=== PATIENT | male | born 1985 | race Caucasian/White ===

== ENCOUNTER 2017-08-11 18:23 | Emergency (ER) | payer OTHER ==
--- NOTE | 2017-08-11 18:48 | ER Document Report ---
ED Medical Screen (RME) - General Chief Complaint: Irregular Pulse Stated Complaint: ABNORMAL LABS ISSUE Time Seen by Provider: 08/11/17 18:40 Notes: RAPID MEDICAL EVALUATION DISCLOSURE I have seen this patient as part of a Rapid Medical Evaluation and, if applicable, placed any initially appropriate orders. The patient will be seen and fully evaluated, including a full history and physical exam, by a provider ( in Main ED or Fast Track) when a room becomes available. 31-year-old male sent here by urgent care for atrial fibrillation and heart rate in the 150s. Patient denies any symptoms. He denies chest pain shortness of breath lightheadedness palpitations. He feels completely normal at this time. He does report that he had a stomach bug over the weekend however it lasted 1 or 2 days before complete resolution. He has not had any changes in medications recently however he was prescribed a "medicine to lower my heart rate" to help with his outbursts however he has not yet even started taking the medication. He does have a history of atrial fibrillation in the past "when I used to drink alcohol" but he has cut down on his alcohol intake significantly because of the atrial fibrillation and was under the impression that it had resolved. The atrial fibrillation was discovered at an urgent care facility where he was receiving an annual physical examination. EXAM CTAB Mildly tachycardic Irregularly irregular rhythm TRAVEL OUTSIDE OF THE [place] IN LAST 30 DAYS: No - Related Data Allergies/Adverse Reactions: No Known Allergies Allergy (Verified 08/11/17 18:25) Past Medical History - Social History Chew tobacco use (# tins/day): No Frequency of alcohol use: Occasional Drug Abuse: None - Past Medical History Cardiac Medical History: Reports: Hx Atrial Fibrillation Renal/ Medical History: Denies: Hx Peritoneal Dialysis - Immunizations Hx Diphtheria, Pertussis, Tetanus Vaccination: Yes
[2017-08-11 19:17] LABS: ABSOLUTE BASOPHILS # (AUTO) 0.1 10^3/uL (0.0-0.2); ABSOLUTE EOSINOPHILS # (AUTO) 0.1 10^3/uL (0.0-0.6); ABSOLUTE LYMPHOCYTES (AUTO) 3.6 10^3/uL (0.5-4.7); ABSOLUTE MONOCYTES (AUTO) 0.9 10^3/uL (0.1-1.4); ABSOLUTE NEUT (AUTO) 4.9 10^3/uL (1.7-8.2); BASOPHILS % (AUTO) 0.5 % (0-2); EOSINOPHILS % (AUTO) 1.4 % (0-6); HEMOGLOBIN 14.5 g/dL (13.5-17.0); LYMPHOCYTES % (AUTO) 37.4 % (13-45); MEAN CORPUSCULAR HGB CONC 35.2 g/dL (32.0-36.0); MEAN CORPUSCULAR VOLUME 85 fl (80-97); MONOCYTES % (AUTO) 9.5 % (3-13); PLATELET COUNT 289 10^3/uL (150-450); RED BLOOD COUNT 4.82 10^6/uL (4.35-5.55); RED CELL DISTRIBUTION WIDTH 12.1 % (11.5-14.0); SEGMENTED NEUTROPHILS % (AUTO) 51.2 % (42-78); TOTAL CELLS COUNTED % (AUTO) 100 %; WHITE BLOOD COUNT 9.6 10^3/uL (4.0-10.5)
--- NOTE | 2017-08-11 19:36 | RADIOLOGY REPORT (SQ) ---
EXAM DESCRIPTION: CHEST 2 VIEWS COMPLETED DATE/TIME: 08/11/2017 7:23 pm REASON FOR STUDY: new a fib COMPARISON: None. EXAM PARAMETERS: NUMBER OF VIEWS: two views TECHNIQUE: Digital Frontal and Lateral radiographic views of the chest acquired. RADIATION DOSE: NA LIMITATIONS: none FINDINGS: LUNGS AND PLEURA: No opacities, masses or pneumothorax. No pleural effusion. MEDIASTINUM AND HILAR STRUCTURES: No masses or contour abnormalities. HEART AND VASCULAR STRUCTURES: Heart normal size. No evidence for failure. BONES: No acute findings. HARDWARE: None in the chest. OTHER: No other significant finding. IMPRESSION: NO ACUTE RADIOGRAPHIC FINDING IN THE CHEST. TECHNICAL DOCUMENTATION: JOB ID: [id number] [employer]- All Rights Reserved Reading location - IP/workstation name: [email or web address]
[2017-08-11 19:57] LABS: ALANINE AMINOTRANSFERASE 44 U/L (21-72); ALBUMIN 4.4 g/dL (3.5-5.0); ALKALINE PHOSPHATASE 72 U/L (38-126); ANION GAP 11 (5-19); ASPARTATE AMINO TRANSFERASE 26 U/L (17-59); BILIRUBIN,DIRECT 0.4 mg/dL (0.0-0.4); BILIRUBIN,TOTAL 0.4 mg/dL (0.2-1.3); BLOOD UREA NITROGEN 18 mg/dL (7-20); CALCIUM 9.5 mg/dL (8.4-10.2); CARBON DIOXIDE 29 mmol/L (22-30); CHLORIDE 106 mmol/L (98-107); GLUCOSE 92 mg/dL (75-110); PHOSPHORUS 4.6 mg/dL (2.5-4.5); POTASSIUM 4.7 mmol/L (3.6-5.0); SODIUM 146.3 mmol/L (137-145); TOTAL PROTEIN 7.6 g/dL (6.3-8.2)
[2017-08-11] MEDS ORDERED: NORMAL SALINE 1000 ML 1,000 ML IV ONE (20:20)
[2017-08-11] MEDS ORDERED: ALPRAZOLAM 0.5 MG TABLET PO ONE (20:21)
--- NOTE | 2017-08-11 20:24 | ER Document Report ---
ED General - General Chief Complaint: Irregular Pulse Stated Complaint: ABNORMAL LABS ISSUE Time Seen by Provider: 08/11/17 18:40 Mode of Arrival: Ambulatory Information source: Patient Notes: Chief complaint: Questionable A. fib History of complain:( obtained from----patient) 31 years old male was going through physical for overseas employment. During the time electrocardiogram was done the [facility] was reading questionable atrial fibrillation therefore he was sent over to the ED to be evaluated further. Patient has no symptoms. Denies any chest pain palpitation or diaphoresis. Onset: As above Duration: As above Severity: Mild Quality: Noncontributory Context: As above Exacerbating factor and relieving factors: Not applicable REVIEW OF SYSTEMS: CONSTITUTIONAL : Denies fever, chills, or sweats. Denies recent illness. EENT: Denies eye, ear, throat, or mouth pain or symptoms. Denies nasal or sinus congestion or discharge. Denies throat, tongue, or mouth swelling or difficulty swallowing. CARDIOVASCULAR: Denies chest pain. Denies palpitations or racing or irregular heart beat. Denies ankle edema. RESPIRATORY: Denies cough, cold, or chest congestion. Denies shortness of breath, difficulty breathing, or wheezing. GASTROINTESTINAL: Denies distention. Denies nausea, vomiting, or diarrhea. Denies blood in vomitus, stools, or per rectum. Denies black, tarry stools. Denies constipation. GENITOURINARY: Denies difficulty urinating, painful urination, burning, frequency, blood in urine, or discharge. FEMALE GENITOURINARY: Denies vaginal bleeding, heavy or abnormal periods, irregular periods. Denies vaginal discharge or odor. MUSCULOSKELETAL: Denies back or neck pain or stiffness. Denies joint pain or swelling. SKIN: Denies rash, lesions or sores. HEMATOLOGIC : Denies easy bruising or bleeding. LYMPHATIC: Denies swollen, enlarged glands. NEUROLOGICAL: Denies confusion or altered mental status. Denies passing out or loss of consciousness. Denies dizziness or lightheadedness. Denies headache. Denies weakness or paralysis or loss of use of either side. Denies problems with gait or speech. Denies sensory loss, numbness, or tingling. Denies seizures. PSYCHIATRIC: Denies anxiety or stress. Denies depression, suicidal ideation, or homicidal ideation. ALL OTHER SYSTEMS REVIEWED AND NEGATIVE. PHYSICAL EXAMINATION: GENERAL: Well-appearing, well-nourished and in no acute distress. HEAD: Atraumatic, normocephalic. EYES: Pupils equal round and reactive to light, extraocular movements intact, conjunctiva are normal. ENT: Nares patent, oropharynx clear without exudates. Moist mucous membranes. NECK: Normal range of motion, supple without lymphadenopathy LUNGS: Breath sounds clear to auscultation bilaterally and equal. No wheezes rales or rhonchi. HEART: Regular rate and rhythm without murmurs ABDOMEN: Soft, nontender, nondistended abdomen. No guarding, no rebound. No masses appreciated. Examination of genitals-deferred Musculoskeletal: Normal range of motion, no pitting or edema. No cyanosis. NEUROLOGICAL: Cranial nerves grossly intact. Normal speech, normal gait. Normal sensory, motor exams PSYCH: Normal mood, normal affect. SKIN: Warm, Dry, normal turgor, no rashes or lesions noted. Dictation was performed using [employer] voice recognition software TRAVEL OUTSIDE OF THE [place] IN LAST 30 DAYS: No - HPI Onset: Just prior to arrival - Related Data Allergies/Adverse Reactions: No Known Allergies Allergy (Verified 08/11/17 18:25) Past Medical History - Social History Smoking Status: Former Smoker Chew tobacco use (# tins/day): No Frequency of alcohol use: Occasional Drug Abuse: None Family History: Reviewed & Not Pertinent Patient has suicidal ideation: No Patient has homicidal ideation: No - Past Medical History Cardiac Medical History: Reports: Hx Atrial Fibrillation Renal/ Medical History: Denies: Hx Peritoneal Dialysis - Immunizations Hx Diphtheria, Pertussis, Tetanus Vaccination: Yes Review of Systems - Review of Systems Notes: Dictated Physical Exam - Vital signs Vitals: Resp Pulse Ox 23 H 98 08/11/17 20:16 08/11/17 20:16 - Notes Notes: Dictated Course - Re-evaluation Re-evalutation: 08/11/17 20:23 Findings were discussed with the patient. 08/12/17 00:17 Subsequent electrocardiogram was at the rate of 90 bpm at atrial fibrillation. Started on Xarelto Case was discussed with the hospitalist and currently being admitted - Vital Signs Vital signs: Temp Pulse Resp BP Pulse Ox 30 H 100/78 100 08/11/17 23:31 08/11/17 23:31 08/11/17 23:31 - Laboratory Result Diagrams: 08/11/17 19:00 08/11/17 19:00 Laboratory results interpreted by me: 08/11/17 19:00 Sodium 146.3 H Phosphorus 4.6 H - EKG Interpretation by Me Rate: Normal - At the rate of 90 bpm normal axis no acute ST elevation ST depression T-wave changes. Rhythm: A.Fib Discharge - Discharge Clinical Impression: Atrial fibrillation Qualifiers: Atrial fibrillation type: paroxysmal Qualified Code(s): I48.0 - Paroxysmal atrial fibrillation Condition: Fair Disposition: ADMITTED INPATIENT Admitting Provider: Hospitalist Unit Admitted: Telemetry Prescriptions: Metoprolol Succinate 50 mg PO DAILY #30 tab.er.24h Rivaroxaban [Xarelto 15 mg Tablet] 15 mg PO DAILY #30 tablet
[2017-08-11 20:58] LABS: URINE AMPHETAMINES SCREEN NEGATIVE; URINE BARBITURATES SCREEN NEGATIVE; URINE BENZODIAZEPINES SCREEN NEGATIVE; URINE COCAINE SCREEN NEGATIVE; URINE MARIJUANA (THC) SCREEN NEGATIVE; URINE METHADONE SCREEN NEGATIVE; URINE PHENCYCLIDINE SCREEN NEGATIVE
[2017-08-11] MEDS ORDERED: METOPROLOL SUCCINATE 50 MG TAB.SR.24H PO ONE (21:25)
[2017-08-11 23:55] VITALS: BP 100/78
[2017-08-12] MEDS ORDERED: RIVAROXABAN 15 MG TABLET PO ONE (00:16)
--- NOTE | 2017-08-12 00:19 | EKG REPORT ---
SEVERITY:- ABNORMAL ECG - SINUS TACHYCARDIA MULTIFORM VENTRICULAR PREMATURE COMPLEXES LEFT AXIS DEVIATION : Confirmed by: Naz Moses MD 12-Aug-2017 00:19:12
--- NOTE | 2017-08-12 00:19 | EKG REPORT ---
SEVERITY:- ABNORMAL ECG - ATRIAL FIBRILLATION, V-RATE 67-110 LEFT AXIS DEVIATION BORDERLINE T ABNORMALITIES, ANT-LAT LEADS BORDERLINE PROLONGED QT INTERVAL : Confirmed by: Naz Moses MD 12-Aug-2017 00:19:06
[2017-08-12] MEDS ORDERED: MAG HYDROX/AL HYDROX/SIMETH SUSP 30 ML UDCUP PO PRN (00:20)
[2017-08-12] MEDS ORDERED: ACETAMINOPHEN 325 MG TABLET PO PRN (00:20)
[2017-08-12] MEDS ORDERED: NORMAL SALINE 1000 ML 1,000 ML IV ONE (00:22)
--- NOTE | 2017-08-12 05:14 | Progress Note ---
Provider Note Provider Note: MD notified by emergency room community health education coordinator patient has left AGAINST MEDICAL ADVICE prior to being seen.
[2017-08-12] MEDS ORDERED: METOPROLOL TARTRATE 50 MG TABLET PO SCH (10:00)
[2017-08-12] MEDS ORDERED: RIVAROXABAN 15 MG TABLET PO SCH (17:00)
== END 2017-08-12 01:42 | disposition other institution (70) ==
LOC: ER 18:23 → EH 08-12 00:37 → UNDOADMIN 08-12 00:37 → ER 08-12 01:42
DX: I48.0 Paroxysmal atrial fibrillation (principal); Z87.891 Personal history of nicotine dependence; Z53.20 Procedure and treatment not carried out because of patient's decision for unspecified reasons
CPT/HCPCS: 93005; 99284; 36415; 83735; 84100; 84443; 85025; 80053; 84484; 80307; 71046; 93010; J7030

== ENCOUNTER 2017-09-23 17:59 | Observation (INO) | payer OTHER ==
--- NOTE | 2017-09-23 18:21 | ER Document Report ---
ED Medical Screen (RME) - General Chief Complaint: Laceration Stated Complaint: LACERATION/LEFT THUMB Time Seen by Provider: 09/23/17 18:12 Mode of Arrival: Wheelchair Information source: Patient, Relative TRAVEL OUTSIDE OF THE [place] IN LAST 30 DAYS: No - HPI Patient complains to provider of: L hand laceration Onset: Just prior to arrival - pt. cut L hand on a diamond grinder just [employer] -- tet- UTD. Can't move thumb - Related Data Allergies/Adverse Reactions: No Known Allergies Allergy (Verified 08/11/17 18:25) Past Medical History - Past Medical History Cardiac Medical History: Reports: Hx Atrial Fibrillation Renal/ Medical History: Denies: Hx Peritoneal Dialysis - Immunizations Hx Diphtheria, Pertussis, Tetanus Vaccination: Yes
--- NOTE | 2017-09-23 19:18 | RADIOLOGY REPORT (SQ) ---
EXAM DESCRIPTION: HAND LEFT 3 VIEWS COMPLETED DATE/TIME: 09/23/2017 6:59 pm REASON FOR STUDY: trauma COMPARISON: None. EXAM PARAMETERS: NUMBER OF VIEWS: Three views. TECHNIQUE: AP, lateral and oblique radiographic images acquired of the left hand. LIMITATIONS: None. FINDINGS: MINERALIZATION: Normal. BONES: No acute fracture or dislocation. No worrisome bone lesions. JOINTS: No effusions. SOFT TISSUES: Dorsal 1st MCP joint soft tissue laceration with multiple radiopaque punctate foreign b odies. OTHER: No other significant finding. IMPRESSION: Dorsal 1st MCP joint soft tissue laceration with multiple radiopaque punctate foreign miquel dies. No fracture identified. TECHNICAL DOCUMENTATION: JOB ID: [id number] [id number] 2010 [employer]- All Rights Reserved Reading location - IP/workstation name: [email or web address]
[2017-09-23] MEDS ORDERED: AMPICILLIN SOD/SULBACTAM 3 GM VIAL IV ONE (19:39)
--- NOTE | 2017-09-23 19:45 | ER Document Report ---
ED General - General Chief Complaint: Laceration Stated Complaint: LACERATION/LEFT THUMB Time Seen by Provider: 09/23/17 18:12 Mode of Arrival: Wheelchair Information source: Patient TRAVEL OUTSIDE OF THE [place] IN LAST 30 DAYS: No - HPI Notes: Patient is a 32-year-old male previous history of atrial fibrillation diagnosed 2 months ago presents to the emergency department with report that he was using a grinding wheel and accidentally cut the dorsal aspect of his left thumb just prior to arrival. The patient is right-hand dominant. The patient reports no numbness or paresthesia or other trauma to the hand. His tetanus is up-to- date. The patient denies any chest pain or difficulty breathing or nausea or vomiting. He reports no abdominal pain or constipation or diarrhea or dysuria. He denies any fever or chills. - Related Data Allergies/Adverse Reactions: No Known Allergies Allergy (Verified 08/11/17 18:25) Past Medical History - General Information source: Patient, Relative - Social History Smoking Status: Former Smoker Frequency of alcohol use: None Drug Abuse: None Lives with: Family Family History: Reviewed & Not Pertinent Patient has suicidal ideation: No Patient has homicidal ideation: No - Past Medical History Cardiac Medical History: Reports: Hx Atrial Fibrillation Renal/ Medical History: Denies: Hx Peritoneal Dialysis - Immunizations Hx Diphtheria, Pertussis, Tetanus Vaccination: Yes Review of Systems - Review of Systems -: Yes All other systems reviewed and negative Physical Exam - Notes Notes: PHYSICAL EXAMINATION: GENERAL: Well-appearing, well-nourished and in no acute distress. HEAD: Atraumatic, normocephalic. EYES: Pupils equal round and reactive to light, extraocular movements intact, sclera anicteric, conjunctiva are normal. ENT: Nares patent, oropharynx clear without exudates. Moist mucous membranes. NECK: Normal range of motion, supple without lymphadenopathy LUNGS: Breath sounds clear to auscultation bilaterally and equal. No wheezes rales or rhonchi. HEART: Irregular rhythm with rate of 102 without appreciable murmur gallop or rub. ABDOMEN: Soft, nontender, nondistended abdomen. No guarding, no rebound. No masses appreciated. Musculoskeletal: no pitting or edema. No cyanosis. Patient has a 4 cm laceration to the dorsal aspect of the left first metacarpophalangeal joint which extends down to the edge of the bone and there is exposed tendon with obvious extensor tendon laceration. There is very minimal particulate debris and there is evidence for burn to the edge of the tissue from the grinding wheel. No proximal erythema or adenopathy. Distally, the patient has good sensation and capillary refill. No other trauma noted to the extremity. Patient has intact flexion of the thumb through the MCP and IP joint but he has no extensor function at the IP and MCP joint of the thumb. NEUROLOGICAL: Cranial nerves grossly intact. Normal speech, normal gait. Normal sensory, motor exams PSYCH: Normal mood, normal affect. SKIN: Warm, Dry, normal turgor, no rashes or lesions noted. Course - Re-evaluation Re-evalutation: 09/23/17 23:22 Patient was given IV Unasyn and x-ray was performed which showed particulate debris versus potential foreign body versus small fracture fragments of the bone from the grinding wheel. No significant gross fracture was noted. Wound area was soaked and irrigated. Discussion was undertaken with Dr. Goodman , covering for Orthopedics, and he quickly came in to see and evaluate the patient and agreed that the patient needed surgical intervention with tendon repair after his bedside evaluation. There was concern about the patient's atrial fibrillation. He previously had been on Xarelto for this, but was taken off of Xarelto by development technician at the [facility] and was placed upon a baby aspirin. By report, the patient had a normal echocardiogram with the exception of the atrial fibrillation and the patient was instructed that he needed evaluation by voice over artist with potential cardioversion performed. Discussion was undertaken with cardiology Dr. Camarena, who saw and evaluated the patient and agreed with based upon the patient's risk factors and score, baby aspirin was indicated as the only anticoagulant at the time. He requested additional Toprol XL 100 mg tablet to be given now, as the patient will be n.p.o. after midnight. The patient normally takes Toprol-XL 100 mg daily. Lab work and other studies showed no significant abnormality. Chest x-ray was clear, and patient was otherwise medically cleared for surgery by cardiology. - Laboratory Result Diagrams: 09/23/17 20:22 09/23/17 20:22 Laboratory results interpreted by me: 09/23/17 09/23/17 20:22 20:22 WBC 12.5 H Absolute Neutrophils 9.5 H Sodium 145.5 H Glucose 113 H - EKG Interpretation by Me Additional EKG results interpreted by me: 09/23/17 19:44 EKG as interpreted by me showed atrial fibrillation with ventricular response rate of 106. There is no gross evidence for acute TX or ischemia noted. There is no other significant change from previous EKG reviewed from 08/11/17. Discharge - Discharge Clinical Impression: Tendon laceration Hand laceration involving tendon Qualifiers: Encounter type: initial encounter Laterality: left Qualified Code(s): S61.412A - Laceration without foreign body of left hand, initial encounter Atrial fibrillation Qualifiers: Atrial fibrillation type: chronic Qualified Code(s): I48.2 - Chronic atrial fibrillation Condition: Stable Disposition: ADMITTED OBSERVATION Admitting Provider: Maxine Unit Admitted: Surgical Floor
--- NOTE | 2017-09-23 20:13 | RADIOLOGY REPORT (SQ) ---
EXAM DESCRIPTION: CHEST 2 VIEWS COMPLETED DATE/TIME: 09/23/2017 7:51 pm REASON FOR STUDY: atrial fibrillation COMPARISON: 08/11/2017 EXAM PARAMETERS: NUMBER OF VIEWS: two views TECHNIQUE: Digital Frontal and Lateral radiographic views of the chest acquired. RADIATION DOSE: NA LIMITATIONS: none FINDINGS: LUNGS AND PLEURA: No acute opacities, masses or pneumothorax. No pleural effusion. MEDIASTINUM AND HILAR STRUCTURES: Stable. HEART AND VASCULAR STRUCTURES: Stable. BONES: No acute findings. HARDWARE: None in the chest. OTHER: No other significant finding. IMPRESSION: NO ACUTE RADIOGRAPHIC FINDING IN THE CHEST. TECHNICAL DOCUMENTATION: JOB ID: [id number] [place]-[id number] 2010 [employer]- All Rights Reserved Reading location - IP/workstation name: [email or web address]
[2017-09-23 20:34] LABS: ABSOLUTE LYMPHOCYTES (AUTO) 2.4 10^3/uL (0.5-4.7); ABSOLUTE MONOCYTES (AUTO) 0.6 10^3/uL (0.1-1.4); ABSOLUTE NEUT (AUTO) 9.5 10^3/uL (1.7-8.2); BASOPHILS % (AUTO) 0.3 % (0-2); EOSINOPHILS % (AUTO) 0.3 % (0-6); HEMATOCRIT 43.1 % (37.9-51.0); HEMOGLOBIN 15.1 g/dL (13.5-17.0); LYMPHOCYTES % (AUTO) 19.2 % (13-45); MEAN CORPUSCULAR HEMOGLOBIN 29.5 pg (27.0-33.4); MEAN CORPUSCULAR HGB CONC 34.9 g/dL (32.0-36.0); MEAN CORPUSCULAR VOLUME 85 fl (80-97); MONOCYTES % (AUTO) 4.6 % (3-13); PLATELET COUNT 267 10^3/uL (150-450); RED BLOOD COUNT 5.11 10^6/uL (4.35-5.55); SEGMENTED NEUTROPHILS % (AUTO) 75.6 % (42-78); TOTAL CELLS COUNTED % (AUTO) 100 %; WHITE BLOOD COUNT 12.5 10^3/uL (4.0-10.5)
[2017-09-23 20:44] LABS: ALANINE AMINOTRANSFERASE 63 U/L (21-72); ALBUMIN 4.6 g/dL (3.5-5.0); ALKALINE PHOSPHATASE 60 U/L (38-126); ANION GAP 18 (5-19); ASPARTATE AMINO TRANSFERASE 39 U/L (17-59); BILIRUBIN,DIRECT 0.3 mg/dL (0.0-0.4); BILIRUBIN,TOTAL 0.5 mg/dL (0.2-1.3); BLOOD UREA NITROGEN 19 mg/dL (7-20); CALCIUM 9.6 mg/dL (8.4-10.2); CARBON DIOXIDE 23 mmol/L (22-30); CHLORIDE 105 mmol/L (98-107); GLUCOSE 113 mg/dL (75-110); POTASSIUM 4.4 mmol/L (3.6-5.0); SODIUM 145.5 mmol/L (137-145); TOTAL PROTEIN 8.2 g/dL (6.3-8.2)
[2017-09-23] MEDS ORDERED: LIDOCAINE 1% INJ-PF (10 MG/ML) 30 ML SDV INJ ONE (21:27)
[2017-09-23] MEDS ORDERED: METOPROLOL SUCCINATE 50 MG TAB.SR.24H PO ONE (22:36)
[2017-09-23] MEDS ORDERED: ONDANSETRON HCL INJ/PF 4 MG/2 ML SDV IV PRN (22:46)
[2017-09-23] MEDS ORDERED: OXYCODONE-ACETAMINOPHEN 5-325 MG TABLET PO PRN (22:46)
--- NOTE | 2017-09-23 23:09 | PDOC CONSULTATION ---
Consultation Consult Date: 09/23/17 Attending physician:: CLAUDIA CINTRON Consult reason:: Preop cardiac evaluation History of Present Illness Admission Date/PCP: 09/23/17 22:47 Patient complains of: Thumb pain History of Present Illness: SAMANTHA GUZMÁN JR is a 32 year old male with history of atrial fibrillation currently treated with aspirin presents to emergency room after sustaining a injury to his left thumb. Patient states he was using a stopper grinder when he inadvertently made contact to the back of his left thumb. Patient immediately was brought to emergency room where he was started on tetanus and given IV antibiotics. Patient states the pain is worse with any motion. Notes some numbness on the back of the finger. Current pain 3/10. Patient describes history of atrial fibrillation. He claims he has been fully evaluated by cardiology by [facility] and does have an appointment with incident coordinator in [facility] for her heart for ablation/ cardioversion etc. Patient claims that he was previously on blood thinner but after evaluation he was just switched to an aspirin a day. He is also on metoprolol succinate 100 mg p.o. daily for rate control. Patient does describe history of loud snoring and may have underlying sleep apnea with witnessed apnea being noted by patient's . Past Medical History Cardiac Medical History: Reports: Atrial Fibrillation Social History Information Source: Patient Smoking Status: Former Smoker - Advance Directive Resuscitation Status: Full Code Surrogate healthcare decision maker:: Patient's is the surrogate decision-maker Family History Family History: Reviewed & Not Pertinent Parental Family History Reviewed: Yes Children Family History Reviewed: Yes Sibling(s) Family History Reviewed.: Yes Medication/Allergy Home Medications: Oxycodone HCl/Acetaminophen [Percocet 5-325 mg Tablet] 1 - 2 tab PO ASDIR PRN # 15 tablet 12/13/13 Metoprolol Succinate 50 mg PO DAILY #30 tab.er.24h 08/12/17 Rivaroxaban [Xarelto 15 mg Tablet] 15 mg PO DAILY #30 tablet 08/12/17 Allergies/Adverse Reactions: No Known Allergies Allergy (Verified 08/11/17 18:25) Review of Systems Review of Systems: Please see history of present illness and past medical history as wall. Constitutional: No fever or chills reported. Head : No recent chronic headaches, recent head injury. Eyes: No recent eye pain, diplopia, redness, discharge, acute visual changes. Ears: No recent chronic ear pain, acute hearing loss, ear discharge. Oral cavity: No recent ulcerations, bleeding, oral cavity discomfort. Neck: No recent acute neck pain reported. Hematologic: No recent easy bruising or bleeding. Lymphatic: No recent lymph node enlargement reported. Cardiovascular system review: See history of present illness. Respiratory system review: No hemoptysis or blood clots in the lungs reported. History of atrial fibrillation Gastrointestinal system review: Negative for any recent acute hematemesis, melena. Genitourinary system review: No recent acute or chronic hematuria, flank pain, UTI etc. reported. Skin system review: Negative for any recent abnormal bruising, no rash, no pruritus reported. Neurologic: No prior history of strokes, mini strokes, seizure disorder. Psychologic: No history of major psychosis or major depression reported. Musculoskeletal: Minor aches and pains reported. No acute joint swelling reported. Endocrine: No recent polyuria, polydipsia, recent heat or cold intolerance. Physical Exam Exam: GENERAL: well-nourished and in no acute distress. Alert and oriented x3 HEAD: Atraumatic, normocephalic. EYES: Pupils equal round and reactive to light, extraocular movements intact, sclera anicteric, conjunctiva are normal. ENT: TMs normal, nares patent, oropharynx clear without exudates. Moist mucous membranes. No oral ulcerations or bleeding gums noted NECK: supple without lymphadenopathy. Trachea is central. No cervical or axillary lymphadenopathy noted. Carotids are 2+, JVD WNL LUNGS: Respiration seems nonlabored, no significant accessory muscle action noted. Breath sounds clear to auscultation bilaterally and equal noted. No wheezes rales or rhonchi noted. No significant dullness noted on percussion. CHEST: Palpation of the chest wall shows no significant chest wall tenderness. HEART: [employer], No PSH, 1/6 RUBINA aortic area, 1/6 mascorro systolic murmur mitral area, no rubs, no gallops. ABDOMEN: Soft, no significant tenderness appreciated, normoactive bowel sounds. No guarding, no rebound. No rigidity noted . No masses appreciated. EXTREMITIES: Pedal pulses are 1-2+, no calf tenderness noted. No clubbing or cyanosis. negative pedal edema noted NEUROLOGICAL: Focused neurological exam showed no significant neurologic deficit. Normal speech, no focal weakness appreciated. PSYCH: Normal mood, normal affect. Judgment and insight within normal limits. SKIN: No significant ecchymosis, skin is noted to be warm. MUSCULOSKELETAL EXAM: No significant acute joint swelling noted. Left thumb in bandage. There is a lacerated wound underneath. Results EKG Comments: Shows atrial fibrillation with RVR, left axis deviation, probable old inferior AR but unchanged from previous EKG more than a month ago in July 2017. Impressions: Hand X-Ray 09/23/17 18:12 IMPRESSION: Dorsal 1st MCP joint soft tissue laceration with multiple radiopaque punctate foreign bodies. No fracture identified. Chest X-Ray 09/23/17 19:40 IMPRESSION: NO ACUTE RADIOGRAPHIC FINDING IN THE CHEST. Assessment & Plan - Diagnosis (1) Preoperative cardiovascular examination Is this a current diagnosis for this admission?: Yes (2) Atrial fibrillation Qualifiers: Atrial fibrillation type: chronic Qualified Code(s): I48.2 - Chronic atrial fibrillation Is this a current diagnosis for this admission?: Yes (3) Hand laceration involving tendon Qualifiers: Encounter type: initial encounter Laterality: left Qualified Code(s): S61.412A - Laceration without foreign body of left hand, initial encounter; S66.922A - Laceration of unspecified muscle, fascia and tendon at wrist and hand level, left hand, initial encounter; S66.922A - Laceration of unspecified muscle, fascia and tendon at wrist and hand level, left hand, initial encounter Is this a current diagnosis for this admission?: Yes (4) Tendon laceration Is this a current diagnosis for this admission?: Yes - Notes Notes: Preop cardiovascular examination: Patient has chronic A. fib. Rate slightly on the high side. EKG is somewhat abnormal and somewhat on the low voltage side however chest x-ray shows normal cardiac silhouette in both PA and lateral projection. No clinical CHF noted not any CHF noted on chest x-ray. Feel that patient would be an acceptable candidate to proceed with surgery without any undue increased risk. Currently not on anticoagulation except for aspirin. Have instructed the ER to administer another 100 mg of metoprolol succinate overnight so that his heart rate is well controlled for surgery tomorrow. If needed, as needed IV Lopressor can be given. It seems surgery is semi-urgent. Laceration of the thumb with involvement of the tendon. Agree that surgery is indicated. Resume aspirin when feasible from surgical standpoint. Loud snoring: Patient will benefit from sleep evaluation because of history of snoring and suspicion of underlying sleep apnea which can result in atrial fibrillation. This was explained to the patient. - Time Time Spent: 30 to 50 Minutes - CODE STATUS was discussed, patient remains full code. Surrogate decision-maker unchanged. Multiple medical problems were addressed. More than 50% of the time spent coordinating care, discussing management plans with involved caregivers. Management plans discussed with involved personnels. Medical decision making was of moderate to high complexity , patient's has multiple comorbidities. Medications reviewed and adjusted accordingly: Yes
[2017-09-23] MEDS: MORPHINE SULFATE 10 MG/ML INJ IV PRN (23:40)
[2017-09-24] MEDS ORDERED: AMPICILLIN SOD/SULBACTAM 1.5 GM VIAL IV SCH
--- NOTE | 2017-09-24 00:05 | EKG REPORT ---
SEVERITY:- ABNORMAL ECG - ATRIAL FIBRILLATION, V-RATE 85-127 LEFT AXIS DEVIATION CONSIDER ANTERIOR INFARCT : Confirmed by: Naz Moses MD 24-Sep-2017 00:04:47
[2017-09-24] MEDS: AMPICILLIN SODIUM/SULBACTAM NA 1.5 GM in NORMAL SALINE 50 ML IV SCH ×2 (03:10→10:35)
[2017-09-24] MEDS: MORPHINE SULFATE 10 MG/ML INJ IV PRN (04:06)
[2017-09-24] MEDS ORDERED: BACITRACIN INJ 50,000 UNIT VIAL ONE (07:09)
[2017-09-24] MEDS ORDERED: LIDOCAINE 1% INJ-PF (10 MG/ML) 30 ML SDV ONE (07:09)
[2017-09-24] MEDS ORDERED: LIDOCAINE 2% INJ-PF (20 MG/ML) 10 ML AMPUL ONE (07:42)
[2017-09-24] MEDS ORDERED: FENTANYL CITRATE INJ/PF 100 MCG/2 ML AMPUL ONE (07:42)
[2017-09-24] MEDS ORDERED: ACETAMINOPHEN 1,000 MG/100 ML RTUPB IV ONE (07:43)
[2017-09-24] MEDS ORDERED: MIDAZOLAM 2 MG/2 ML INJ ONE (07:43)
[2017-09-24] MEDS ORDERED: PROPOFOL INJ 200 MG/20 ML VIAL IV ONE (07:43)
[2017-09-24] MEDS ORDERED: DIPHENHYDRAMINE HCL 50 MG/ML VIAL IV PRN (08:24)
[2017-09-24] MEDS ORDERED: MEPERIDINE HCL/PF INJ 25 MG/1 ML DISP.SYRIN IV PRN (08:24)
[2017-09-24] MEDS ORDERED: FENTANYL CITRATE INJ/PF 100 MCG/2 ML AMPUL IV PRN ×3 (08:24)
[2017-09-24] MEDS ORDERED: PROMETHAZINE HCL INJ 25 MG/1 ML VIAL IV PRN ×2 (08:24)
[2017-09-24] MEDS ORDERED: ONDANSETRON HCL INJ/PF 4 MG/2 ML SDV IV PRN (08:24)
--- NOTE | 2017-09-24 09:29 | Operative Report ---
Operative Report DATE OF SURGERY: 09/24/17 PREOPERATIVE DIAGNOSIS: Laceration left thumb POSTOPERATIVE DIAGNOSIS: Zone III extensor tendon laceration left thumb with open fracture thumb metacarpal head, with foreign body contamination OPERATION: 1. Irrigation and debridement open fracture left thumb index metacarpal, MCP joint. 2. zone III extensor tendon repair. SURGEON: CLAUDIA CINTRON ANESTHESIA: LMAC COMPLICATIONS: None ESTIMATED BLOOD LOSS: Minimal PROCEDURE: Indication for above procedure: 32-year-old male who sustained a grinding injury to the dorsum of his thumb at the MP joint. Patient was seen in the emergency room where he was started on antibiotics and wound was cleansed and loosely closed. Patient required cardiology clearance once this was obtained decision was made to proceed with operative treatment in a somewhat urgent basis. Risks and benefits were explained to the patient verbalized understanding consented for the procedure. Procedure In Detail: Patient was seen and evaluated in the preoperative holding area. The LEFT upper extremity was initialized and marked. Patient receiving IV Unasyn scheduled. Patient was taken back to the operative room where transferred to the operative table and placed under MAC al anesthesia. Once they were adequately anesthetized a nonsterile tourniquet was placed on the upper extremity. A surgical team debriefing was performed ensuring all instrumentation was available, the surgical procedure was discussed with possible concerns reviewed. Digital block was performed utilizing 10 cc of 1% lidocaine without epinephrine. The upper extremity was pre-prepped with chlorhexidine and then prepped with Betadine and draped in a sterile fashion. A timeout was done identifying correct patient, procedure and extremity everyone in attendance agree with this and verbalized no concerns. The extremity was exsanguinated the tourniquet was inflated to 250 mmHg. The wound was extended proximally and distally and explored. There was gross contamination with small fragments of metal along the soft tissues, extensor tendon and within the MCP joint. Any nonviable tissue was excised and the particulate matter removed. The MP joint was copiously irrigated with normal saline flushing any remaining loose bodies. An open fracture of the index metacarpal was noted with a groove along its dorsal surface just along the transition from the metaphysis to the articular surface. This was debrided and curetted to remove any the particulate matter. There was disruption of the small sensory branches of the superficial radial nerve a large intermediate branch along the ulnar border remained intact. Any peripheral veins were coagulated with bipolar cautery. Under fluoroscopy I tested radial ulnar collateral ligament stability was adequate stability with no evidence of angulation greater than 15 and minimal gapping and no translation after stress. 1 L of saline was then utilized to complete irrigation. The extensor mechanism was then closed with a running 3-0 Ethibond Silverskiold stitch which was also reinforced with [id number] stitches. There is good stability of the extensor tendon repair with no evidence of gapping. Once again radial ulnar collateral ligament stability was tested which demonstrated no evidence of laxity on examination. Tourniquet was then deflated any peripheral veins were coagulated with bipolar cautery into the wound was dry. Additional 10 cc of 1% lidocaine without epinephrine was injected for postoperative pain control. Skin incision was closed with interrupted 3-0 nylon suture. Wound was dressed with Xeroform 4 x 4's and patient was placed in a thumb spica plaster splint maintaining full IP and MP joint flexion with the wrist at 20 of extension. Sponge counts, instrument counts, needle counts counts were correct. Patient was then awoken from anesthesia. Transferred from the operating room table to the operating room stretcher. There was no intraoperative complications patient tolerated procedure well stable to PACU. Postoperative plan: Patient will follow-up the office in 2 weeks for wound check and then be transitioned to a thumb spica cast it was then be set up for occupational therapy 6 weeks postoperatively to begin range of motion exercises.
[2017-09-24 10:49] VITALS: BP 116/76
--- NOTE | 2017-09-24 10:54 | PDOC DISCHARGE SUMMARY ---
General - Admit/Disc Date/PCP Admission Date/Primary Care Provider: 09/23/17 22:47 Discharge Date: 09/24/17 - Discharge Diagnosis (1) Hand laceration involving tendon Is this a current diagnosis for this admission?: Yes - Additional Information Resuscitation Status: Full Code Discharge Diet: As Tolerated Discharge Activity: No Lifting Over 10 Pounds, No Lifting/Push/Pulling Prescriptions: Amox Tr/Potassium Clavulanate [Augmentin 875-125 mg Tablet] 1 tab PO BID #20 tablet Oxycodone HCl/Acetaminophen [Percocet 5-325 mg Tablet] 1 tab PO Q6 #28 tab Home Medications: Metoprolol Succinate 50 mg PO DAILY #30 tab.er.24h 08/12/17 Amox Tr/Potassium Clavulanate [Augmentin 875-125 mg Tablet] 1 tab PO BID #20 tablet 09/24/17 Oxycodone HCl/Acetaminophen [Percocet 5-325 mg Tablet] 1 tab PO Q6 #28 tab 09/24 History of Present Illness History of Present Illness: SAMANTHA GUZMÁN JR is a 32 year old male with history of atrial fibrillation currently treated with aspirin presents to emergency room after sustaining a injury to his left thumb. 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 Patient immediately was brought to emergency room where he was started on tetanus and given IV antibiotics. Patient states the pain is worse with any motion. Notes some numbness on the back of the finger. Current pain 3/10. Hospital Course Hospital Course: Patient underwent left thumb irrigation and debridement with repair of extensor tendon on 09/24/17. Patient had been receiving IV antibiotics prior to surgical treatment and continues to receive antibiotics. Patient doing well postoperatively pain has been controlled. At this point patient orthopedically stable for discharge to home. Physical Exam Vital Signs: Temp Pulse Resp BP Pulse Ox 98.4 F 89 16 116/76 98 09/24/17 10:30 09/24/17 10:30 09/24/17 10:30 09/24/17 10:30 09/24/17 10:30 Intake & Output 09/23/17 09/24/17 09/25/17 06:59 06:59 06:59 Intake Total 50 2500 Output Total 1510 Balance 50 990 Weight 104.2 kg General appearance: PRESENT: no acute distress, well-developed, well-nourished Head exam: PRESENT: atraumatic, normocephalic Eye exam: PRESENT: conjunctiva pink, EOMI, PERRLA. ABSENT: scleral icterus Ear exam: PRESENT: normal external ear exam Mouth exam: PRESENT: moist, tongue midline Neck exam: PRESENT: full ROM. ABSENT: carotid bruit, JVD, lymphadenopathy, thyromegaly Cardiovascular exam: PRESENT: RRR. ABSENT: diastolic murmur, rubs, systolic murmur Pulses: PRESENT: normal dorsalis pedis pul, +2 pedal pulses bilateral Vascular exam: PRESENT: normal capillary refill GI/Abdominal exam: PRESENT: normal bowel sounds, soft. ABSENT: distended, guarding, mass, organolmegaly, rebound, tenderness Rectal exam: PRESENT: deferred Musculoskeletal exam: PRESENT: other - Left hand: Dressing clean/dry/intact no erythema or drainage. Cap refill less than 2 seconds. Neurological exam: PRESENT: alert, awake, oriented to person, oriented to place , oriented to time, oriented to situation, CN II-XII grossly intact. ABSENT: motor sensory deficit Psychiatric exam: PRESENT: appropriate affect, normal mood. ABSENT: homicidal ideation, suicidal ideation Skin exam: PRESENT: dry, intact, warm. ABSENT: cyanosis, rash Results Impressions: Hand X-Ray 09/23/17 18:12 IMPRESSION: Dorsal 1st MCP joint soft tissue laceration with multiple radiopaque punctate foreign bodies. No fracture identified. Chest X-Ray 09/23/17 19:40 IMPRESSION: NO ACUTE RADIOGRAPHIC FINDING IN THE CHEST. Qualifiers - * PATIENT BEING DISCHARGED WITH ANY OF THE FOLLOWING DIAGNOSIS: No Plan Discharge Plan: Patient has done well postoperatively. Plan is for discharge to home will continue Augmentin for bacterial prophylaxis. We will continue splint at all times. Patient to follow-up at my office in 10-14 days for recheck. Patient is to call with any questions or concerns including increasing redness, swelling , pain or temperature greater than 101.5. Patient was read above instructions, understood above instructions and is orthopedically stable for discharge to home.
--- NOTE | 2017-09-24 12:30 | RADIOLOGY REPORT (SQ) ---
EXAM DESCRIPTION: NO CHG FLUORO; FINGER LEFT COMPLETED DATE/TIME: 09/24/2017 9:38 am REASON FOR STUDY: LT THUMB TENDON REPAIR IN OR COMPARISON: None. FLUOROSCOPY TIME: 9 seconds 3 images saved to PACS. TECHNIQUE: Intra-operative images acquired during surgical procedure to evaluate progress. NUMBER OF IMAGES: 3 LIMITATIONS: None. FINDINGS: Selected images of the left thumb obtained in the operating room. IMPRESSION: IMAGE(S) OBTAINED DURING PROCEDURE. COMMENT: Quality ID [id number]: Final reports for procedures using fluoroscopy that document radiation exp osure indices, or exposure time and number of fluorographic images (if radiation exposure indices are not available) Please consult full operative report of the attending physician for description of the procedure. TECHNICAL DOCUMENTATION: JOB ID: [id number] [employer]- All Rights Reserved Reading location - IP/workstation name: [email or web address]
--- NOTE | 2017-09-24 12:30 | RADIOLOGY REPORT (SQ) ---
EXAM DESCRIPTION: NO CHG FLUORO; FINGER LEFT COMPLETED DATE/TIME: 09/24/2017 9:38 am REASON FOR STUDY: LT THUMB TENDON REPAIR IN OR COMPARISON: None. FLUOROSCOPY TIME: 9 seconds 3 images saved to PACS. TECHNIQUE: Intra-operative images acquired during surgical procedure to evaluate progress. NUMBER OF IMAGES: 3 LIMITATIONS: None. FINDINGS: Selected images of the left thumb obtained in the operating room. IMPRESSION: IMAGE(S) OBTAINED DURING PROCEDURE. COMMENT: Quality ID 145: Final reports for procedures using fluoroscopy that document radiation exp osure indices, or exposure time and number of fluorographic images (if radiation exposure indices are not available) Please consult full operative report of the attending physician for description of the procedure. TECHNICAL DOCUMENTATION: JOB ID: [id number] [employer]- All Rights Reserved Reading location - IP/workstation name: [email or web address]
--- NOTE | 2017-09-27 14:33 | Progress Note ---
Provider Note Provider Note: History and Physical Examination History of Present Illness Patient complains of: Left thumb injury History of Present Illness: SAMANTHA GUZMÁN JR is a 32 year old male with history of atrial fibrillation currently treated with aspirin presents to emergency room after sustaining a injury to his left thumb. Patient states he was using a bark grinder when he inadvertently made contact to the back of his left thumb. Patient immediately was brought to emergency room where he was started on tetanus and given IV antibiotics. Patient states the pain is worse with any motion. Notes some numbness on the back of the finger. Current pain 04/23. Past Medical History Cardiac Medical History: Reports: Atrial Fibrillation Social History Smoking Status: Former Smoker Family History Family History: Reviewed & Not Pertinent Parental Family History Reviewed: No Children Family History Reviewed: No Sibling(s) Family History Reviewed.: No Medication/Allergy Home Medications: Oxycodone HCl/Acetaminophen [Percocet 5-325 mg Tablet] 1 - 2 tab PO ASDIR PRN # 15 tablet 12/13/13 Metoprolol Succinate 50 mg PO DAILY #30 tab.er.24h 08/12/17 Rivaroxaban [Xarelto 15 mg Tablet] 15 mg PO DAILY #30 tablet 08/12/17 Allergies/Adverse Reactions: No Known Allergies Allergy (Verified 08/11/17 18:25) Review of Systems Constitutional: ABSENT: chills, fever(s), headache(s), weight gain, weight loss Eyes: ABSENT: visual disturbances Ears: ABSENT: hearing changes Cardiovascular: PRESENT: other - Atrial fibrillation. ABSENT: chest pain, dyspnea on exertion, edema, orthropnea, palpitations Respiratory: ABSENT: cough, hemoptysis Gastrointestinal: ABSENT: abdominal pain, constipation, diarrhea, hematemesis, hematochezia, nausea, vomiting Genitourinary: ABSENT: dysuria, hematuria Integumentary: ABSENT: rash, wounds Neurological: ABSENT: abnormal gait, abnormal speech, confusion, dizziness, focal weakness, syncope Psychiatric: ABSENT: anxiety, depression, homidical ideation, suicidal ideation Endocrine: ABSENT: cold intolerance, heat intolerance, menstrual abnormalities, polydipsia, polyuria Hematologic/Lymphatic: ABSENT: easy bleeding, easy bruising, lymphadenopathy Physical Exam General appearance: PRESENT: no acute distress, well-developed, well-nourished Head exam: PRESENT: atraumatic, normocephalic Eye exam: PRESENT: conjunctiva pink, EOMI, PERRLA. ABSENT: scleral icterus Ear exam: PRESENT: normal external ear exam Mouth exam: PRESENT: moist, tongue midline Neck exam: PRESENT: full ROM. ABSENT: carotid bruit, JVD, lymphadenopathy, thyromegaly Respiratory exam: PRESENT: unlabored Cardiovascular exam: PRESENT: irregular rhythm. ABSENT: diastolic murmur, rubs , systolic murmur Pulses: PRESENT: normal dorsalis pedis pul, +2 pedal pulses bilateral Vascular exam: PRESENT: normal capillary refill GI/Abdominal exam: PRESENT: normal bowel sounds, soft. ABSENT: distended, guarding, mass, organolmegaly, rebound, tenderness Rectal exam: PRESENT: deferred Musculoskeletal exam: PRESENT: other - Left thumb: 5 cm laceration with defect within the extensor tendon along the dorsum of the MCP joint. No active bleeding. Appropriate tenderness palpation. Intact flexion but lacks extension of the MP and IP joint. Hypoesthesia on the distal tip. Cap refill less than 2 seconds. Neurological exam: PRESENT: alert, awake, oriented to person, oriented to place , oriented to time, oriented to situation, CN II-XII grossly intact. ABSENT: motor sensory deficit Psychiatric exam: PRESENT: appropriate affect, normal mood. ABSENT: homicidal ideation, suicidal ideation Skin exam: PRESENT: dry, intact, warm. ABSENT: cyanosis, rash Results Laboratory Results: 09/23/17 20:22 09/23/17 20:22 09/23/17 09/23/17 09/23/17 20:22 20:22 20:22 WBC 12.5 H RBC 5.11 Hgb 15.1 Hct 43.1 MCV 85 MCH 29.5 MCHC 34.9 RDW 12.0 Plt Count 267 Seg Neutrophils % 75.6 Lymphocytes % 19.2 Monocytes % 4.6 Eosinophils % 0.3 Basophils % 0.3 Absolute Neutrophils 9.5 H Absolute Lymphocytes 2.4 Absolute Monocytes 0.6 Absolute Eosinophils 0.0 Absolute Basophils 0.0 Sodium 145.5 H Potassium 4.4 Chloride 105 Carbon Dioxide 23 Anion Gap 18 BUN 19 Creatinine 1.08 Est GFR ( Amer) > 60 Est GFR (Non-Af Amer) > 60 Glucose 113 H Calcium 9.6 Magnesium 2.2 Total Bilirubin 0.5 AST 39 ALT 63 Alkaline Phosphatase 60 Total Protein 8.2 Albumin 4.6 TSH 0.92 Impressions: Hand X-Ray 09/23/17 18:12 IMPRESSION: Dorsal 1st MCP joint soft tissue laceration with multiple radiopaque punctate foreign bodies. No fracture identified. Chest X-Ray 09/23/17 19:40 IMPRESSION: NO ACUTE RADIOGRAPHIC FINDING IN THE CHEST. Status: Image reviewed by me - I have reviewed patient's radiographs of the left thumb with demonstrate soft tissue defect dorsally with fragmentation within the dorsal soft tissues. No definitive fracture noted Assessment & Plan - Diagnosis (1) Hand laceration involving tendon Qualifiers: Encounter type: initial encounter Laterality: left Qualified Code(s): S61.412A - Laceration without foreign body of left hand, initial encounter; S66.922A - Laceration of unspecified muscle, fascia and tendon at wrist and hand level, left hand, initial encounter; S66.922A - Laceration of unspecified muscle, fascia and tendon at wrist and hand level, left hand, initial encounter Is this a current diagnosis for this admission?: Yes Plan: Given the involvement of the patient's underlying extensor tendon and bone I would treat this as a open fracture of the MCP joint. Thus I have recommended operative intervention which includes irrigation debridement with repair of extensor tendon and closure. However before proceeding with operative intervention patient will require cardiology/medicine clearance given his history of atrial fibrillation. Plan will be to proceed with operative treatment under [facility]. Risks and benefits of the operative procedure have been explained to the patient risks including neurovascular risk, infection, postoperative pain, postoperative stiffness, posttraumatic arthritis. We have also discussed postoperative expectations and need for rehabilitation to optimize patient outcome. Plan will be to proceed with operative intervention on 09/24/17
== END 2017-09-24 13:16 | disposition home or self-care (01) ==
LOC: ER 17:59 → EH 22:47 → 4N 09-24 00:23
PROVIDERS: ADMIT Orthopaedic Surgery; ATTEND Orthopaedic Surgery
PROC: 0LQ80ZZ Repair Left Hand Tendon, Open Approach (ICD-10-PCS; principal; 2017-09-24 07:45)
DX: S62.292B Other fracture of first metacarpal bone, left hand, initial encounter for open fracture (principal); S66.222A Laceration of extensor muscle, fascia and tendon of left thumb at wrist and hand level, initial encounter; W26.8XXA Contact with other sharp object(s), not elsewhere classified, initial encounter; R20.0 Anesthesia of skin; I48.2 Chronic atrial fibrillation; Z87.891 Personal history of nicotine dependence; Z79.82 Long term (current) use of aspirin; Z01.810 Encounter for preprocedural cardiovascular examination
CPT/HCPCS: 93005; 99284; 96374; 36415; 83735; 84443; 85025; 80053; 71046; 73140; 73130; 93010; 26410; G0378 ×3; J2250; J3490 ×3; J3010; J0295 ×2; J2270 ×2; J2704; J0131; 01810